=== PATIENT | male | born 1995 | race Caucasian/White ===

== ENCOUNTER 2021-09-15 11:16 | Emergency (ER) | payer OTHER ==
[~2021-09-15] VITALS: Ht 198.1 cm; Wt 127.3 kg
[~2021-09-15 11:16] MED LIST: OXYC1TAB23 PO
[2021-09-15 14:08] VITALS: BP 136/79
== END 2021-09-15 14:13 | disposition home or self-care (01) ==
LOC: M ED 11:16
DX: N50.89 Other specified disorders of the male genital organs (principal)